=== PATIENT | male | born 1990 | race African-American/Black ===

== ENCOUNTER 2020-03-30 02:56 | Emergency (ER) | payer SELFPAY ==
[2020-03-30] MEDS ORDERED: Azithromycin 250 MG TAB ONE (03:15)
[2020-03-30] MEDS ORDERED: Lidocaine 1% 20 ML MDV ONE (03:15)
[2020-03-30] MEDS ORDERED: cefTRIAXone\\ROCEPHIN 250 MG VIAL ONE (03:15)
[2020-03-30 14:59] LABS: Syphilis Antibody Nonreactive (Nonreactive); Syphilis Antibody Index 0.05 S/CO (<1.00 Non-Reactive)
[2020-03-30 15:01] LABS: HBCM Index 0.16 S/CO (0-0.79); HBSAg Index 0.23 S/CO (0-0.99); HIV (1/2) Antibody/Antigen Non-Reactive (NonReactive); HIV 1/2 INDEX 0.12 S/CO (<1.00); Hep A IgM AB Non-Reactive (NonReactive); Hep A IgM S/CO 0.54 S/CO (0-0.79); Hep B Surf Ag Non-Reactive S/CO (NonReactive); Hep C IgG Ab Non-Reactive (NonReactive); Hep C Index 0.08 S/CO (0-0.79); Hepatitis B Core IgM Abs Non-Reactive (NonReactive)
== END 2020-03-30 03:51 | disposition home or self-care (01) ==
LOC: MADERS 02:56
DX: N34.2 Other urethritis (principal); F17.210 Nicotine dependence, cigarettes, uncomplicated
CPT/HCPCS: 80074; 86780; 87389; 87491; 87591; 96372; 99283; J0696

== ENCOUNTER 2022-11-02 08:52 | Emergency (ER) | payer SELFPAY | END 2022-11-02 09:35 | disposition left against medical advice (07) | LOC: MADERS 08:52 | DX: R25.2 Cramp and spasm (principal); F17.210 Nicotine dependence, cigarettes, uncomplicated | CPT/HCPCS: 99283 ==